=== PATIENT | female | born 1935 | race Caucasian/White ===

== ENCOUNTER 2016-12-24 12:03 | Inpatient (IN) | payer MEDICARE, OTHER ==
[~2016-12-24] VITALS: Ht 172.7 cm; Wt 81.6 kg
[2016-12-24 13:12] LABS: BASOPHILS % (AUTO) 0 % (0-2); EOSINOPHILS # (AUTO) 0.1 10^3uL; EOSINOPHILS % (AUTO) 1 % (0-4); LYMPHOCYTES # (AUTO) 1.5 X10^3; MEAN CORPUSCULAR HEMOGLOBIN 30.3 PG (26.0-34.0); MEAN CORPUSCULAR HGB CONC 34.1 g/dL (31.0-37.0); MEAN CORPUSCULAR VOLUME 89 FL (80-100); MONOCYTES # (AUTO) 0.5 X10^3; MONOCYTES % (AUTO) 9 % (3-11); NEUTROPHILS # (AUTO) 4.2 X10^3; NEUTROPHILS % (AUTO) 66 % (51-67); PLATELET COUNT 179 10^3uL (150-450); WHITE BLOOD COUNT 6.31 10^3uL (4.0-11.0)
[2016-12-24 13:24] LABS: ALBUMIN 4.4 g/dL (3.4-5.0); ALKALINE PHOSPHATASE 56 U/L (38-126); ANION GAP 14.6 MEQ/L (3-15); BUN/CREATININE RATIO 23 (10-20); CALCULATED IONIZED CALCIUM 4.6 mg/dL (3.8-4.6); TOTAL PROTEIN 7.5 g/dL (6.4-8.5)
[2016-12-24] MEDS ORDERED: ASPIRIN 325 MG TAB PO ONE (14:25)
[2016-12-24] MEDS ORDERED: ACETAMINOPHEN 325 MG TAB (TYLENOL) PO PRN (15:05)
[2016-12-24 15:15] VITALS: BP 183/74
[2016-12-24 16:25] VITALS: BP 183/74
[2016-12-24 16:26] VITALS: BP 183/74
[2016-12-24 19:28] VITALS: BP 134/71
[2016-12-24 20:10] VITALS: BP 136/69
[2016-12-25] VITALS (12 sets, daily range): BP systolic 119–151; BP diastolic 59–71
[2016-12-25 06:34] LABS: BASOPHILS % (AUTO) 0 % (0-2); EOSINOPHILS # (AUTO) 0.1 10^3uL; EOSINOPHILS % (AUTO) 2 % (0-4); LYMPHOCYTES # (AUTO) 1.4 X10^3; MEAN CORPUSCULAR HEMOGLOBIN 30.6 PG (26.0-34.0); MEAN CORPUSCULAR HGB CONC 34.9 g/dL (31.0-37.0); MEAN CORPUSCULAR VOLUME 88 FL (80-100); MEAN PLATELET VOLUME 11.2 FL (6.0-9.5); MONOCYTES # (AUTO) 0.5 X10^3; MONOCYTES % (AUTO) 12 % (3-11); NEUTROPHILS # (AUTO) 2.4 X10^3; NEUTROPHILS % (AUTO) 53 % (51-67); PLATELET COUNT 157 10^3uL (150-450); WHITE BLOOD COUNT 4.46 10^3uL (4.0-11.0)
[2016-12-25 07:07] LABS: ALBUMIN 3.7 g/dL (3.4-5.0); ANION GAP 11.3 MEQ/L (3-15); CALCULATED IONIZED CALCIUM 4.4 mg/dL (3.8-4.6); MAGNESIUM* 1.4 mg/dL (1.6-2.3); TOTAL PROTEIN 6.6 g/dL (6.4-8.5)
[2016-12-25] MEDS ORDERED: NS FLUSH 10 ML PRN IV (08:15)
[2016-12-25] MEDS ORDERED: NS FLUSH 3 ML PRN IV (08:15)
[2016-12-25] MEDS: NS FLUSH 3 ML DAILY IV SCH (09:00)
[2016-12-25] MEDS ORDERED: MAGNESIUM OXIDE 400 MG (MAG-OX) TAB PO ONE (11:25)
[2016-12-25] MEDS ORDERED: POTASSIUM CHLORIDE ER 20 MEQ TABLET PO ONE (11:25)
[2016-12-25] MEDS: BISOPROLOL 5 MG PO SCH (12:41)
[2016-12-25] MEDS: MULTIVITAMIN W/MINERALS (THERAGRAN M) TABLET PO SCH (12:43)
[2016-12-25] MEDS: TRIAMTERENE/HCTZ 37.5MG-25MG (MAXZIDE, DYAZIDE) CAPSULE PO SCH (12:43)
[2016-12-25] MEDS: CHOLECALCIFEROL 1000 INT UNITS (VITAMIN D3) TABLET PO SCH (12:43)
[2016-12-25] MEDS: VIT A,C & E/LUTEIN/MINERALS (I-VITE) TABLET PO SCH (17:27)
[2016-12-26] VITALS (11 sets, daily range): BP systolic 123–140; BP diastolic 56–96
[2016-12-26 06:06] LABS: BASOPHILS % (AUTO) 0 % (0-2); EOSINOPHILS # (AUTO) 0.1 10^3uL; EOSINOPHILS % (AUTO) 2 % (0-4); LYMPHOCYTES # (AUTO) 1.6 X10^3; MEAN CORPUSCULAR HEMOGLOBIN 30.2 PG (26.0-34.0); MEAN CORPUSCULAR HGB CONC 34.2 g/dL (31.0-37.0); MEAN CORPUSCULAR VOLUME 88 FL (80-100); MEAN PLATELET VOLUME 11.3 FL (6.0-9.5); MONOCYTES # (AUTO) 0.5 X10^3; MONOCYTES % (AUTO) 11 % (3-11); NEUTROPHILS # (AUTO) 2.6 X10^3; NEUTROPHILS % (AUTO) 54 % (51-67); PLATELET COUNT 164 10^3uL (150-450); WHITE BLOOD COUNT 4.78 10^3uL (4.0-11.0)
[2016-12-26 06:33] LABS: ALBUMIN 3.6 g/dL (3.4-5.0); ANION GAP 11.6 MEQ/L (3-15); CALCULATED IONIZED CALCIUM 4.4 mg/dL (3.8-4.6); MAGNESIUM* 1.6 mg/dL (1.6-2.3); TOTAL PROTEIN 6.5 g/dL (6.4-8.5)
[2016-12-26] MEDS: CHOLECALCIFEROL 1000 INT UNITS (VITAMIN D3) TABLET PO SCH (08:25)
[2016-12-26] MEDS: BISOPROLOL 5 MG PO SCH (08:25)
[2016-12-26] MEDS: TRIAMTERENE/HCTZ 37.5MG-25MG (MAXZIDE, DYAZIDE) CAPSULE PO SCH (08:25)
[2016-12-26] MEDS: MULTIVITAMIN W/MINERALS (THERAGRAN M) TABLET PO SCH (08:25)
[2016-12-26] MEDS: VIT A,C & E/LUTEIN/MINERALS (I-VITE) TABLET PO SCH ×2 (08:25→17:29)
[2016-12-26] MEDS: NS FLUSH 3 ML DAILY IV SCH (08:27)
[2016-12-26] MEDS ORDERED: ASPIRIN 325 MG TAB PO ONE (13:00)
[2016-12-26] MEDS ORDERED: MAGNESIUM OXIDE 400 MG (MAG-OX) TAB PO ONE (13:15)
[2016-12-26] MEDS ORDERED: POTASSIUM CHLORIDE ER 20 MEQ TABLET PO ONE (13:15)
[2016-12-27 00:04] VITALS: BP 114/57
[2016-12-27 01:25] VITALS: BP 114/57
[2016-12-27 03:40] VITALS: BP 155/74
[2016-12-27 05:21] VITALS: BP 155/74
[2016-12-27 06:08] LABS: BASOPHILS % (AUTO) 0 % (0-2); EOSINOPHILS # (AUTO) 0.1 10^3uL; EOSINOPHILS % (AUTO) 2 % (0-4); LYMPHOCYTES # (AUTO) 1.3 X10^3; MEAN CORPUSCULAR HEMOGLOBIN 30.2 PG (26.0-34.0); MEAN CORPUSCULAR HGB CONC 33.9 g/dL (31.0-37.0); MEAN CORPUSCULAR VOLUME 89 FL (80-100); MEAN PLATELET VOLUME 11.3 FL (6.0-9.5); MONOCYTES # (AUTO) 0.5 X10^3; MONOCYTES % (AUTO) 10 % (3-11); NEUTROPHILS # (AUTO) 3.2 X10^3; NEUTROPHILS % (AUTO) 62 % (51-67); PLATELET COUNT 183 10^3uL (150-450); WHITE BLOOD COUNT 5.17 10^3uL (4.0-11.0)
[2016-12-27 06:22] LABS: ANION GAP 13.7 MEQ/L (3-15); CALCULATED IONIZED CALCIUM 4.2 mg/dL (3.8-4.6); MAGNESIUM* 1.8 mg/dL (1.6-2.3); TOTAL PROTEIN 7.2 g/dL (6.4-8.5)
[2016-12-27 07:34] VITALS: BP 121/70
[2016-12-27 08:05] VITALS: BP 121/70
[2016-12-27] MEDS: VIT A,C & E/LUTEIN/MINERALS (I-VITE) TABLET PO SCH (08:11)
[2016-12-27] MEDS: MULTIVITAMIN W/MINERALS (THERAGRAN M) TABLET PO SCH (08:11)
[2016-12-27] MEDS: NS FLUSH 3 ML DAILY IV SCH (08:11)
[2016-12-27] MEDS: TRIAMTERENE/HCTZ 37.5MG-25MG (MAXZIDE, DYAZIDE) CAPSULE PO SCH (08:12)
[2016-12-27] MEDS: BISOPROLOL 5 MG PO SCH (08:12)
[2016-12-27] MEDS: CHOLECALCIFEROL 1000 INT UNITS (VITAMIN D3) TABLET PO SCH (08:12)
[2016-12-27] MEDS ORDERED: ASPIRIN 325 MG TAB PO SCH (09:00)
== END 2016-12-27 08:27 | disposition home or self-care (01) | DRG 93 ==
LOC: ED 12:06 → MED/SURG 14:30 → OBSVTOIN 14:30 → INTOOBSV 14:30 → UNDOADMOB 14:30 → OBSVTOIN 14:31 → MED/SURG 14:31 → INTOOBSV 12-25 14:40 → OBSVTOIN 12-25 14:40 → UNDODISIN 12-27 08:27
PROVIDERS: ADMIT Family Medicine; ATTEND Family Medicine
DX: R20.0 Anesthesia of skin (principal); R20.2 Paresthesia of skin; R47.81 Slurred speech; Z66 Do not resuscitate; I10 Essential (primary) hypertension; H35.30 Unspecified macular degeneration; E80.6 Other disorders of bilirubin metabolism; Z85.3 Personal history of malignant neoplasm of breast; Z85.828 Personal history of other malignant neoplasm of skin
CPT/HCPCS: 36415; 70450; 80053; 82247; 82248; 83735; 84443; 84484; 85025; 85610; 93005; 93010; 93306; 93880; 99284; 99285